=== PATIENT | male | born 1965 | race Caucasian/White ===

== ENCOUNTER 2016-06-04 09:53 | Emergency (ER) | payer BC ==
[2016-06-04] MEDS ORDERED: Ondansetron ODT TAB* 4 MG PO ONE (10:54)
--- NOTE | 2016-06-04 10:54 | UC ---
Abdominal Pain Male HPI - HPI Summary HPI Summary: 2 DAYS OF N/V/D, ABDOMINAL CRAMPING. NO FEVER. IS ABLE TO KEEP DOWN PO BUT IS REQUESTING IV FLUIDS. STATES HE HAD IT LAST TIME HE HAD A GI BUG AND FELT MUCH BETTER. - History of Current Complaint Chief Complaint: UCGI Stated Complaint: ABDOMINAL PAIN Time Seen by Provider: 06/04/16 10:26 Hx Obtained From: Patient Onset/Duration: Gradual Onset, Lasting Days, Still Present Timing: Constant Severity Initially: Mild Severity Currently: Mild Pain Intensity: 0 Pain Scale Used: 0-10 Numeric Location: Diffuse Radiates: No Character: Cramping Aggravating Factor(s):: Food Alleviating Factor(s): Rest Associated Signs And Symptoms: Positive: Nausea, Vomiting, Diarrhea. Negative: Fever - Allergies/Home Medications Allergies/Adverse Reactions: Allergies Allergy/AdvReac Type Severity Reaction Status Date / Time No Known Allergies Allergy Verified 06/04/16 10:15 PMH/Surg Hx/FS Hx/Imm Hx Previously Healthy: Yes Endocrine History Of: Denies: Diabetes, Thyroid Disease Cardiovascular History Of: Denies: Cardiac Disorders, Hypertension Respiratory History Of: Denies: COPD, Asthma GI/ History Of: Denies: Ulcer - Surgical History Surgical History: None - Family History Known Family History: Negative: Hypertension - Social History Alcohol Use: Daily Substance Use Type: None Smoking Status (MU): Never Smoked Tobacco - Immunization History Most Recent Tetanus Shot: Tdap @ 2-3 years ago Review of Systems Constitutional: Negative Respiratory: Negative Cardiovascular: Negative Gastrointestinal: Vomiting, Diarrhea, Other - NAUSEA Neurological: Other - OCCASIONAL DIZZINESS All Other Systems Reviewed And Are Negative: Yes Physical Exam Triage Information Reviewed: Yes Appearance: Well-Appearing, No Pain Distress, Well-Nourished Vital Signs: Initial Vital Signs Temp 98.9 F 06/04/16 10:05 Pulse 78 06/04/16 10:05 Resp 16 06/04/16 10:05 BP 140/85 06/04/16 10:05 Pulse Ox 97 06/04/16 10:05 Vital Signs Reviewed: Yes Eyes: Positive: Conjunctiva Clear ENT: Positive: Hearing grossly normal Neck: Positive: Supple Respiratory Exam: Normal Cardiovascular Exam: Normal Abdomen Description: Positive: Nontender, Soft. Negative: CVA Tenderness (R), CVA Tenderness (L), Distended, Guarding Bowel Sounds: Positive: Present Musculoskeletal: Positive: No Edema Neurological: Positive: Alert Psychological: Positive: Age Appropriate Behavior Skin: Negative: rashes Re-Evaluation - Re-Evaluation First Eval Re-Evaluation Time: 12:00 - FEELS BETTER AFTER 200ML IVF Change: Improved Second Eval Re-Evaluation Time: 12:26 - 300 ML NS IN. PT FEELS READY TO GO HOME Change: Improved Abd Pain Male Course/Dx - Differential Dx/Clinical Impression Provider Diagnoses: ACUTE GASTROENTERITIS Discharge - Discharge Plan Condition: Stable Disposition: HOME Prescriptions: Ondansetron ODT TAB* [Zofran Odt TAB*] 4 mg PO Q6H PRN #20 tab.odt PRN Reason: Nausea/Vomiting Patient Education Materials: Gastroenteritis (ED) Referrals: Yuniel Tirado MD [Primary Care Provider] - If Needed Additional Instructions: ENSURE ADEQUATE HYDRATION. CLEAR LIQUIDS, BLAND DIET. AVOID CAFFEINE, DAIRY, GREASY, SPICY FOODS. ONCE YOU ARE TOLERATING CLEAR LIQUIDS YOU CAN ADVANCE TO SIMPLE, BLAND FOODS.
[2016-06-04] MEDS ORDERED: NS 0.9% 1000 ML* 1,000 ML IV SCH (11:00)
[2016-06-04 11:22] VITALS: BP 126/83
== END 2016-06-04 12:32 | disposition home or self-care (01) ==
LOC: UCEAST 09:53
DX: K52.9 Noninfective gastroenteritis and colitis, unspecified (principal)
CPT/HCPCS: 96360; 99212; A9270-GY; G0463